=== PATIENT | female | born 1965 | race Caucasian/White ===

== ENCOUNTER 2016-08-25 11:16 | Inpatient (IN) | payer BC ==
[~2016-08-25 11:16] MED LIST: ALEVE220 MG PO; ANTIVERT25 MG PO; CITRUCEL413 GM PO; IRON1 TA1 PO; LIPOFEN150 M1 PO; LIPOFEN150 MG PO; MAG-AL PLUS XS30 ML PO; MELOXICAM15 M1 PO; MELOXICAM15 MG PO; MILK OF MA400 MG/5 M PO; MULTIVITAMIN1 TAB PO; NORCO 5/3251 TAB PO; SENOKOT-S TABLE1 TAB PO; TURMERIC500 M2 PO; ULTRAM50 MG PO; ZOFRAN ODT4 MG/UDTAB PO
[2016-08-25 12:06] LABS: PROTHROMBIN TIME 11.6 SECONDS (9.0-13.6)
[2016-08-26 04:33] LABS: PROTHROMBIN TIME 12.1 SECONDS (9.0-13.6)
[2016-08-26 04:35] LABS: BASO % 0.1 % (0-2); HCT-HEMATOCRIT 34.3 % (34.0-49.0); HGB-HEMOGLOBIN 11.3 gm/dl (12.0-15.5); IMMATURE GRANULOCYTES ABSOLUTE 0.04 tho/cmm (0-0.03); IMMATURE GRANULOCYTES PERCENT 0.3 % (0-0.3); LYMPH % 9.2 % (20-45); LYMPH ABSOLUTE COUNT 1.5 tho/cmm (0.8-4.5); MCH (MEAN CORPUSCULAR HGB) 29.6 pg (28.0-32.0); MCHC MEAN CORPUSCULAR HGB CONC 32.9 % (32.0-36.0); MCV (MEAN CELL VOLUME) 89.8 fl (82.0-96.0); MEAN PLATELET VOLUME 9.3 cmc (9.4-12.4); MONO % 4.6 % (0-12); MONOCYTE ABSOLUTE COUNT 0.7 tho/cmm (0.0-1.2); NEUTROPHIL ABSOLUTE COUNT 13.7 tho/cmm (1.6-8.0); NEUTROPHIL-AUTOMATED 13.7 tho/cmm (1.6-8.0); NEUTROPHILS % 85.8 % (40-80); PLATELET COUNT 320 tho/cmm (150-450); RED BLOOD COUNT 3.82 mil/cmm (4.00-5.20); RED CELL DISTRIBUTION WIDTH 13.2 % (12.4-16.4); WHITE BLOOD COUNT 15.9 tho/cmm (4.0-10.0)
[2016-08-28] MEDS ORDERED: ASPIRIN325 M3 PO (09:46)
[2016-08-28] MEDS ORDERED: ULTRAM50 M1 PO (09:47)
[2016-08-28] MEDS ORDERED: ROXICODONE5 M2 PO (09:48)
[2016-08-28] MEDS ORDERED: TYLENOL325 M2 PO (09:52)
== END 2016-08-28 11:59 | DRG 470 ==
LOC: SHSB 11:16 → ORE 13:18 → PACU 15:55 → 5EA 17:00
PROVIDERS: ADMIT Orthopaedic Surgery
PROC: 0SRC0J9 Replacement of Right Knee Joint with Synthetic Substitute, Cemented, Open Approach (ICD-10-PCS; principal; 2016-08-25)
DX: M17.11 Unilateral primary osteoarthritis, right knee (principal)
CPT/HCPCS: C1713; C1776; J0171; J0690; J1885; J2270; J2795